=== PATIENT | female | born 1945 ===

== ENCOUNTER 2021-03-09 19:58 | Inpatient (IN) ==
[2021-03-09] MEDS ORDERED: NS 0.9% 1000 ml BAG 1,000 ML IV ONE (23:13)
[2021-03-09 23:14] LABS: ABS Basophils 0.1 10^3/ul (0-0.2); ABS Eosinophils 0.1 10^3/ul (0-0.6); ABS Lymphocytes 2.4 10^3/ul (1.0-4.8); ABS Monocytes 0.6 10^3/ul (0-0.8); ABS Neutrophils 5.7 10^3/ul (1.5-7.7); Eosinophil % 0.9 %; Hematocrit 30 % (35-47); Hemoglobin 9.5 g/dL (12.0-16.0); Lymphocyte % 27.4 %; Mean Corpuscular HGB Conc 32 g/dL (31-36); Mean Corpuscular Hemoglobin 24 pg (27-31); Mean Corpuscular Volume 75 fL (80-97); Mean Platelet Volume 7.2 fL (7.4-10.4); Platelet Count 309 10^3/uL (150-450); Red Blood Count 3.92 10^6 /uL (3.70-4.87); Red Cell Distribution Width 17 % (10-15); White Blood Count 8.9 10^3/uL (3.5-10.8)
[2021-03-09 23:20] LABS: INR 1.37 (0.82-1.09)
[2021-03-09 23:30] LABS: Albumin 3.6 g/dL (3.2-5.2); Albumin/Globulin Ratio 1.2 (1-3); BUN/Creatinine Ratio 26.9 (8-20); C Reactive Protein 27.55 mg/L (<8.01); Calcium 8.9 mg/dL (8.6-10.3); EGFR African American 103.3 (>60); EGFR Non-African American 85.3 (>60); Potassium 3.8 mmol/L (3.5-5.0); Total Bilirubin 0.4 mg/dL (0.2-1.0); Total Protein 6.6 g/dL (6.4-8.9)
[2021-03-09 23:33] LABS: Troponin I 0.01 ng/mL (<0.03)
[2021-03-10 00:03] LABS: Influenza A Molecular Negative (Negative); Influenza B Molecular Negative (Negative)
[2021-03-10] MEDS ORDERED: Furosemide 40 mg/4 ml IV VIAL IV ONE (00:26)
[2021-03-10] MEDS ORDERED: Iohexol 350 (CONTRAST) 500 ML MDV IV ONE (00:56)
[2021-03-10] MEDS ORDERED: Piperacillin/Tazobac ADVAN 3.375 GM in NS 0.9% 100 ml BAG 100 ML IVPB ONE (02:29)
[2021-03-10 03:45] LABS: TSH Ultra Thyroid Stim Horm 5.63 mcIU/mL (0.34-5.60)
[2021-03-10] MEDS: Albuterol/Ipratropium NEB.SOL (2.5/0.5 MG) 3 ML NEB.SOLN INH SCH ×2 (04:08→09:27)
[2021-03-10 04:48] LABS: BUN/Creatinine Ratio 21.1 (8-20); Calcium 8.5 mg/dL (8.6-10.3); EGFR African American 96.6 (>60); EGFR Non-African American 79.8 (>60); Magnesium 1.7 mg/dL (1.9-2.7); Potassium 3.5 mmol/L (3.5-5.0)
[2021-03-10 05:01] LABS: ABS Basophils 0.1 10^3/ul (0-0.2); ABS Eosinophils 0.1 10^3/ul (0-0.6); ABS Lymphocytes 1.8 10^3/ul (1.0-4.8); ABS Monocytes 0.6 10^3/ul (0-0.8); ABS Neutrophils 8.1 10^3/ul (1.5-7.7); Eosinophil % 0.7 %; Hematocrit 32 % (35-47); Hemoglobin 10.3 g/dL (12.0-16.0); Lymphocyte % 16.9 %; Mean Corpuscular HGB Conc 33 g/dL (31-36); Mean Corpuscular Hemoglobin 24 pg (27-31); Mean Corpuscular Volume 74 fL (80-97); Mean Platelet Volume 7.2 fL (7.4-10.4); Platelet Count 324 10^3/uL (150-450); Red Cell Distribution Width 16 % (10-15); White Blood Count 10.7 10^3/uL (3.5-10.8)
[2021-03-10 05:03] LABS: TSH Ultra Thyroid Stim Horm 5.53 mcIU/mL (0.34-5.60)
[2021-03-10] MEDS ORDERED: Magnesium Sulfate 2 gm BAG 2 GM/50 ML BAG ONE (05:21)
[2021-03-10] MEDS ORDERED: Magnesium Sulfate 2 gm BAG 2 GM/50 ML BAG IVPB ONE (05:45)
[2021-03-10] MEDS ORDERED: Albuterol HFA INHALER 8 gm MDI INH PRN (06:08)
[2021-03-10] MEDS: Conjugated Estrogens 0.625 TAB PO SCH (08:38)
[2021-03-10] MEDS: prednisoLONE 1% OPHTH.SUSP 5 ML OPHTH.SUSP RIGHT EYE SCH ×5 (08:38→20:36)
[2021-03-10] MEDS: CMCS:Ketorolac 0.5% OPHTH (NF) 0.5 % 5 ML BTL RIGHT EYE SCH ×5 (08:39→20:36)
[2021-03-10] MEDS ORDERED: Mometasone/Formoter 100/5 MDI INH SCH (09:00)
[2021-03-10] MEDS ORDERED: Aspirin EC 81 mg TAB.EC (enteric coated) PO SCH (09:00)
[2021-03-10] MEDS: SPIRIVA Respimat (tiotropium) 2.5 mcg/inh Inhaler INH SCH (09:30)
[2021-03-10] MEDS ORDERED: Albuterol/Ipratropium NEB.SOL (2.5/0.5 MG) 3 ML NEB.SOLN INH PRN (09:37)
[2021-03-11 06:15] LABS: Hematocrit 28 % (35-47); Hemoglobin 8.9 g/dL (12.0-16.0); Mean Corpuscular HGB Conc 32 g/dL (31-36); Mean Corpuscular Hemoglobin 24 pg (27-31); Mean Corpuscular Volume 74 fL (80-97); Mean Platelet Volume 7.2 fL (7.4-10.4); Platelet Count 316 10^3/uL (150-450); Red Blood Count 3.71 10^6 /uL (3.70-4.87); Red Cell Distribution Width 17 % (10-15); White Blood Count 14.3 10^3/uL (3.5-10.8)
[2021-03-11 06:23] LABS: Anion Gap 6 mmol/L (2-11); BUN/Creatinine Ratio 26.6 (8-20); Blood Urea Nitrogen 21 mg/dL (6-24); CO2 Carbon Dioxide 27 mmol/L (22-32); Calcium 8.3 mg/dL (8.6-10.3); Chloride 103 mmol/L (101-111); EGFR African American 85.4 (>60); EGFR Non-African American 70.6 (>60); Glucose 89 mg/dL (70-100); Potassium 3.5 mmol/L (3.5-5.0); Sodium 136 mmol/L (135-145)
[2021-03-11 07:04] LABS: % Iron Saturation 7 % (15-55); Iron 38 ug/dL (50-212); Total Iron Binding Capacity 570 mcg/dL (250-450); Transferrin 407 mg/dL (203-362); Unsaturated Iron Binding < 555 ug/dL
[2021-03-11 07:24] LABS: Ferritin 13.2 ng/mL (11-307)
[2021-03-11 07:29] LABS: Vitamin B12 307 pg/mL (180-914)
[2021-03-11] MEDS: SPIRIVA Respimat (tiotropium) 2.5 mcg/inh Inhaler INH SCH (07:58)
[2021-03-11 09:06] LABS: Magnesium 2.2 mg/dL (1.9-2.7)
[2021-03-11] MEDS: Conjugated Estrogens 0.625 TAB PO SCH (09:14)
[2021-03-11] MEDS: prednisoLONE 1% OPHTH.SUSP 5 ML OPHTH.SUSP RIGHT EYE SCH ×5 (09:14→23:23)
[2021-03-11] MEDS: CMCS:Ketorolac 0.5% OPHTH (NF) 0.5 % 5 ML BTL RIGHT EYE SCH ×5 (09:14→23:23)
[2021-03-11] MEDS ORDERED: Senna TAB 8.6 mg TAB PO PRN (18:22)
[2021-03-12 06:11] LABS: Hematocrit 28 % (35-47); Hemoglobin 8.9 g/dL (12.0-16.0); Mean Corpuscular HGB Conc 32 g/dL (31-36); Mean Corpuscular Hemoglobin 24 pg (27-31); Mean Corpuscular Volume 74 fL (80-97); Mean Platelet Volume 7.1 fL (7.4-10.4); Platelet Count 318 10^3/uL (150-450); Red Blood Count 3.72 10^6 /uL (3.70-4.87); Red Cell Distribution Width 17 % (10-15); White Blood Count 14.8 10^3/uL (3.5-10.8)
[2021-03-12] MEDS: SPIRIVA Respimat (tiotropium) 2.5 mcg/inh Inhaler INH SCH (07:24)
[2021-03-12] MEDS: Conjugated Estrogens 0.625 TAB PO SCH (07:50)
[2021-03-12] MEDS: prednisoLONE 1% OPHTH.SUSP 5 ML OPHTH.SUSP RIGHT EYE SCH ×2 (07:50→13:05)
[2021-03-12] MEDS: CMCS:Ketorolac 0.5% OPHTH (NF) 0.5 % 5 ML BTL RIGHT EYE SCH ×2 (07:51→13:05)
[2021-03-12 11:52] VITALS: BP 116/75
[2021-03-13] MEDS ORDERED: Nicotine PATCH 21 MG/24 HR PATCH TRANSDERM SCH (09:00)
== END 2021-03-12 16:20 | disposition home or self-care (01) | DRG 190 ==
LOC: ED 19:58 → MED 03-10 03:42
PROVIDERS: ADMIT Internal Medicine; ATTEND Internal Medicine

== ENCOUNTER 2023-08-04 17:48 | Inpatient (IN) ==
[2023-08-04 19:26] LABS: ABS Basophils 0.1 10^3/uL (0.0-0.1); ABS Eosinophils 0.1 10^3/uL (0.0-0.5); ABS Lymphocytes 2.6 10^3/uL (1.0-4.8); ABS Monocytes 0.6 10^3/uL (0.0-0.9); ABS Neutrophils 3.5 10^3/uL (1.5-7.6); Hematocrit 33.3 % (35-45); Hemoglobin 11.4 g/dL (11.5-14.3); Lymphocyte % 38.3 %; Mean Corpuscular Hemoglobin 32.2 pg (27-33); Mean Corpuscular Hgb Conc 34.3 g/dL (31-36); Mean Platelet Volume 6.7 fL (7.5-11.2); Platelet Count 236 10^3/uL (150-450); Red Blood Count 3.54 10^6/uL (3.63-4.92); Red Cell Distribution Width 13.9 % (12-17); White Blood Count 6.9 10^3/uL (3.8-11.8)
[2023-08-04 20:13] LABS: Albumin 3.7 g/dL (3.2-5.2); Calcium 8.9 mg/dL (8.6-10.3); Potassium 3.4 mmol/L (3.5-5.0); Total Bilirubin 0.2 mg/dL (0.2-1.0)
[2023-08-04 20:19] LABS: Albumin/Globulin Ratio 1.3 (1-3); Creatinine, Serum 0.75 mg/dL (0.51-0.95); Globulin 2.9 g/dL (2-4); Total Protein 6.6 g/dL (6.4-8.9); eGFR CKD-EPI 80.4 (>60)
[2023-08-04] MEDS ORDERED: Vancomycin 1,500 MG in NS 0.9% 250 ml 250 ML IVPB ONE (21:24)
[2023-08-04] MEDS ORDERED: Ondansetron 4 mg VIAL 2 MG/ML 2 ml VIAL IV PRN (21:33)
[2023-08-04] MEDS ORDERED: Vancomycin 750 MG in NS 0.9% 250 ML IVPB ONE (22:00)
[2023-08-04] MEDS ORDERED: Vancomycin per Pharmacy 1 EA NOTE FOLLOW UP SCH (23:00)
[2023-08-04 23:23] LABS: C Reactive Protein 21.16 mg/L (<8.01); Magnesium 1.9 mg/dL (1.9-2.7)
[2023-08-05] MEDS ORDERED: Potassium Chlor 20 meq TAB.ER PO ONE (00:37)
[2023-08-05] MEDS ORDERED: Metoprolol Tartrate 5 mg VIAL 5 ml VIAL (1 mg/ml) IV ONE (05:35)
[2023-08-05 05:59] LABS: ABS Basophils 0.1 10^3/uL (0.0-0.1); ABS Eosinophils 0.1 10^3/uL (0.0-0.5); ABS Lymphocytes 2.2 10^3/uL (1.0-4.8); ABS Monocytes 0.6 10^3/uL (0.0-0.9); ABS Neutrophils 3.4 10^3/uL (1.5-7.6); ABS Nucleated RBC 0.01 10^3/ul; Eosinophil % 1.3 %; Hematocrit 32.5 % (35-45); Hemoglobin 11.4 g/dL (11.5-14.3); Lymphocyte % 34.4 %; Mean Corpuscular Hemoglobin 32.7 pg (27-33); Mean Corpuscular Hgb Conc 35.1 g/dL (31-36); Mean Corpuscular Volume 93.3 fL (80-97); Mean Platelet Volume 6.5 fL (7.5-11.2); Nucleated Red Blood Cells % 0.2 /100 WBC (0.0-0.4); Platelet Count 237 10^3/uL (150-450); Red Blood Count 3.48 10^6/uL (3.63-4.92); Red Cell Distribution Width 13.7 % (12-17); White Blood Count 6.3 10^3/uL (3.8-11.8)
[2023-08-05 06:14] LABS: Calcium 8.4 mg/dL (8.6-10.3); Creatinine, Serum 0.73 mg/dL (0.51-0.95); Potassium 3.6 mmol/L (3.5-5.0); eGFR CKD-EPI 83.1 (>60)
[2023-08-05] MEDS: Conjugated Estrogens 0.625 TAB PO SCH (09:28)
[2023-08-05] MEDS: Vancomycin 500 MG in NS 0.9% 250 ML IVPB SCH ×2 (12:19→23:19)
[2023-08-05] MEDS ORDERED: fentaNYL 100 mcg/2 ml 50 MCG/ML VIAL ONE (13:16)
[2023-08-05 13:23] LABS: INR 1.07 (0.83-1.13)
[2023-08-06 06:05] LABS: ABS Eosinophils 0.1 10^3/uL (0.0-0.5); ABS Lymphocytes 2.4 10^3/uL (1.0-4.8); ABS Monocytes 0.6 10^3/uL (0.0-0.9); ABS Neutrophils 3.5 10^3/uL (1.5-7.6); Eosinophil % 1.3 %; Hematocrit 29.7 % (35-45); Hemoglobin 10.4 g/dL (11.5-14.3); Lymphocyte % 36.8 %; Mean Corpuscular Hemoglobin 32.5 pg (27-33); Mean Corpuscular Volume 92.9 fL (80-97); Mean Platelet Volume 6.6 fL (7.5-11.2); Platelet Count 230 10^3/uL (150-450); Red Cell Distribution Width 13.7 % (12-17); White Blood Count 6.6 10^3/uL (3.8-11.8)
[2023-08-06 06:37] LABS: Calcium 8.5 mg/dL (8.6-10.3); Creatinine, Serum 0.66 mg/dL (0.51-0.95); Potassium 3.9 mmol/L (3.5-5.0); eGFR CKD-EPI 88.6 (>60)
[2023-08-06] MEDS: Conjugated Estrogens 0.625 TAB PO SCH (09:21)
[2023-08-06 09:38] VITALS: BP 145/74
[2023-08-06] MEDS ORDERED: Vancomycin Trough Check NOTE FOLLOW UP ONE (11:30)
== END 2023-08-06 13:30 | disposition home or self-care (01) | DRG 316 ==
LOC: ED 17:48 → EDHOLD 21:33 → MED 08-05 13:47
PROVIDERS: ADMIT Student in an Organized Health Care Education/Training Program; ATTEND Student in an Organized Health Care Education/Training Program